=== PATIENT | female | born 1995 | race Caucasian/White ===

== ENCOUNTER 2023-11-28 14:35 | Emergency (ER) | payer OTHER ==
[2023-11-28 16:57] VITALS: RESP 18
[2023-11-28 18:05] LABS: Basophils % (A) 0 %; Eosinophils % (A) 1 %; HCT 38.8 % (34.0-46.0); HGB 13.1 gm/dL (11.4-16.0); Lymphocytes # (A) 1.1 k/uL (1.0-4.8); Lymphocytes % (A) 15 %; MCH 30.3 pg (25.0-35.0); MCHC 33.7 g/dL (31.0-37.0); MCV 89.8 fL (80.0-100.0); Mean Platelet Volume 8.4; Monocytes # (A) 0.4 k/uL (0-1.0); Monocytes % (A) 5 %; Neutrophils # (A) 5.8 k/uL (1.3-7.7); Neutrophils % (A) 78 %; Platelet Count 217 k/uL (150-450); RBC 4.32 m/uL (3.80-5.40); RDW 12.6 % (11.5-15.5); WBC 7.4 k/uL (3.8-10.6)
[2023-11-28] MEDS ORDERED: KETOROLAC 15 MG/ML 1 ML VIAL IVP STA (18:13)
[2023-11-28 18:15] LABS: African American GFR (CKD) >90 (>60 ml/min/1.73 sqM); Anion Gap 12 mmol/L; Blood Urea Nitrogen 10 mg/dL (7-17); Calcium 9.1 mg/dL (8.4-10.2); Carbon Dioxide 22 mmol/L (22-30); Chloride 104 mmol/L (98-107); Glucose 89 mg/dL (74-99); Non-African American GFR(CKD) >90 (>60 ml/min/1.73 sqM); Sodium 138 mmol/L (137-145)
[2023-11-28 18:17] LABS: Potassium 4.1 mmol/L (3.5-5.1)
--- NOTE | 2023-11-28 19:04 | CT ---
EXAMINATION TYPE: CT soft tissue neck w con DATE OF EXAM: 11/28/2023 COMPARISON: None HISTORY: 28-year-old female right side tooth pain, possible Lj's angina TECHNIQUE: Contiguous axial scanning of the soft tissues of the neck performed with IV Contrast, mary ent injected with 100 ml mL of Isovue 300. Coronal and sagittal reconstructions performed. CT DLP: 406.2 mGycm Automated exposure control for dose reduction was used. FINDINGS: Visualized intracranial structures, orbits and globes, and mastoid air cells appear clear. Slight lef tward nasal septal deviation. Nasopharynx is clear. Mild to moderate hypertrophy of the bilateral palatine tonsils. Epiglottis and prevertebral soft tissues are satisfactory. There is soft tissue swelling overlying the anterior right side of the mandible with corresponding th ickening of the upper right platysma muscle. An enlarged 9 mm right submental space lymph node and a couple asymmetric right-sided maneuvers space lymph nodes measuring up to 1.0 cm.. No significant periodontal disease identified. Glottic and subglottic structures as well as the tracheal column and visualized upper lungs appear cl ear. Bones: No osseous destructive process. IMPRESSION: 1. CELLULITIS ALONG THE ANTERIOR AND RIGHT SIDE OF THE JAW EXTENDING TO THE RIGHT SIDE OF THE UPPER N GEETA. SOME REACTIVE LYMPH NODES UPPER RIGHT NECK MEASURING UP TO 1 CM. NO ABSCESS IS IDENTIFIED. UNABL E TO IDENTIFY SIGNIFICANT PERIODONTAL DISEASE. CLINICALLY CORRELATE. 2. Preserved fat planes along the floor of the mouth argues against Lj's angina. Clinical follow- up if persistent concern or worsening symptoms.
--- NOTE | 2023-11-28 19:37 | ED ---
ENT HPI - General Chief complaint: Dental/Oral Stated complaint: tooth infection Time Seen by Provider: 11/28/23 16:32 Source: patient, family Mode of arrival: ambulatory Limitations: no limitations - History of Present Illness Initial comments: This patient is a 28-year-old woman who presents to have evaluation for right sided dental pain. She indicates right-sided mandibular molar. She also complains of swelling and tenderness. She states she had gone to dental clinic and was sent here with concerns related to the developing infection. Patient had initially been seen 2 days ago at [facility] and started amoxicillin. She states that the swelling worsened over the course of last night. No change in speech or swallowing. No dyspnea. MD complaint: tooth pain -: days(s) Severity: moderate Quality: aching Consistency: constant Improves with: none Worsens with: eating Associated Symptoms: gum swelling, toothache - Related Data Previous Rx's Medication Instructions Recorded Amoxic-Pot Clav 875-125Mg 1 tab PO Q12HR 1 Days #14 tab 11/28/23 [Augmentin 875-125] Allergies Allergy/AdvReac Type Severity Reaction Status Date / Time Milk Containing Products Allergy Nausea & Verified 11/28/23 16:42 (Dairy) Vomiting & [Dairy] Diarrhea Review of Systems ROS Statement: Those systems with pertinent positive or pertinent negative responses have been documented in the HPI. ROS Other: All systems not noted in ROS Statement are negative. Constitutional: Denies: fever, chills, weakness Eyes: Denies: eye pain, vision change ENT: Reports: dental pain. Denies: ear pain, throat pain Respiratory: Denies: cough, dyspnea Cardiovascular: Denies: chest pain, syncope Gastrointestinal: Denies: abdominal pain, vomiting Skin: Denies: rash Neurological: Denies: headache Past Medical History Past Medical History: No Reported History History of Any Multi-Drug Resistant Organisms: None Reported Additional Past Surgical History / Comment(s): dental surgery Past Psychological History: Anxiety, Depression Smoking Status: Never smoker Past Alcohol Use History: None Reported Past Drug Use History: None Reported General Exam Limitations: no limitations General appearance: alert, in no apparent distress Head exam: Present: atraumatic, normocephalic Eye exam: Present: normal appearance, PERRL, EOMI. Absent: periorbital swelling, periorbital tenderness ENT exam: Present: normal oropharynx Neck exam: Present: normal inspection, tenderness, full ROM, lymphadenopathy, other (Patient does have swelling adjacent to the right mandible. There is no neck fullness. There are cervical nodes. No evident distress). Absent: meningi smus Respiratory exam: Present: normal lung sounds bilaterally. Absent: respiratory distress, wheezes, rales, rhonchi, stridor Cardiovascular Exam: Present: normal rhythm, tachycardia, normal heart sounds. Absent: systolic murmur, diastolic murmur, rubs, gallop GI/Abdominal exam: Present: soft. Absent: tenderness Neurological exam: Present: alert Skin exam: Present: warm, dry, intact, normal color. Absent: rash Course Vital Signs 11/28/23 11/28/23 16:34 19:37 Temperature 98.6 F 99.4 F Pulse Rate 109 H 88 Respiratory 18 18 Rate Blood Pressure 161/95 132/79 O2 Sat by Pulse 95 98 Oximetry Medical Decision Making - Medical Decision Making Was pt. sent in by a medical professional or institution (, PA, PRIMARY CARE COORDINATOR, urgent care, hospital, or penitentiary...) When possible be specific @ -Sided by outside clinic to have further evaluation for dental infection Did you speak to anyone other than the patient for history (EMS, parent, family, police, friend...)? What history was obtained from this source @ -[Patient's family contributed history Did you review nursing and triage notes (agree or disagree)? Why? @ -[I reviewed and agree with nursing and triage notes] Were old charts reviewed (outside hosp., previous admission, EMS record, old EKG, old radiological studies, urgent care reports/EKG's, penitentiary records)? Report findings @ -[No old charts were reviewed] Differential Diagnosis (chest pain, altered mental status, abdominal pain women, abdominal pain men, vaginal bleeding, weakness, fever, dyspnea, syncope, headache, dizziness, GI bleed, back pain, seizure, CVA, palpatations, mental health, musculoskeletal)? @ -[not applicable] EKG interpreted by me (3pts min.). @ -[As above] X-rays interpreted by me (1pt min.). @ -[None done] CT interpreted by me (1pt min.). @ -[None done] U/S interpreted by me (1pt. min.). @ -[None done] What testing was considered but not performed or refused? (CT, X-rays, U/S, labs)? Why? @ -[None] What meds were considered but not given or refused? Why? @ -[None] Did you discuss the management of the patient with other professionals (professionals i.e. , PA, PRIMARY CARE COORDINATOR, lab, RT, psych nurse, social work therapist, mosaic tile maker, teacher, chief green officer, case management assistant)? Give summary @ -[No] Was smoking cessation discussed for >3mins.? @ -[No] Was critical care preformed (if so, how long)? @ -[No] Were there social determinants of health that impacted care today? How? (Homelessness, low income, unemployed, alcoholism, drug addiction, transportation, low edu. Level, literacy, decrease access to med. care, penitentiary, rehab)? @ -[No] Was there de-escalation of care discussed even if they declined (Discuss DNR or withdrawal of care, Hospice)? DNR status @ -[No] What co-morbidities impacted this encounter? (DM, HTN, Smoking, COPD, CAD, Cancer, CVA, ARF, Chemo, Hep., AIDS, mental health diagnosis, sleep apnea, morbid obesity)? @ -[None] Was patient admitted / discharged? Hospital course, mention meds given and route, prescriptions, significant lab abnormalities, going to OR and other pertinent info. @ -[Patient is 28-year-old woman here with increasing infection related to right mandibular dental infection. The studies do not reveal evidence of Lj angina. Will increase the spectrum activity of patient's antibiotic coverage and have close follow-up. Discussed return parameters. Undiagnosed new problem with uncertain prognosis? @ -[No] Drug Therapy requiring intensive monitoring for toxicity (Heparin, Nitro, Insulin, Cardizem)? @ -[No] Were any procedures done? @ -[No] Diagnosis/symptom? @ -[Acute dental infection Acute, or Chronic, or Acute on Chronic? @ -[Acute Uncomplicated (without systemic symptoms) or Complicated (systemic symptoms)? @ -[Uncomplicated Side effects of treatment? @ -[No] Exacerbation, Progression, or Severe Exacerbation? @ -[No] Poses a threat to life or bodily function? How? (Chest pain, [place], [place], pneumonia, PE, COPD, DKA, ARF, appy, cholecystitis, CVA, Diverticulitis, Homicidal, Suicidal, threat to staff... and all critical care pts) @ -[No] - Lab Data Result diagrams: 11/28/23 17:36 11/28/23 17:36 Lab Results 11/28/23 11/28/23 Range/Units 17:36 17:36 WBC 7.4 (3.8-10.6) k/uL RBC 4.32 (3.80-5.40) m/uL Hgb 13.1 (11.4-16.0) gm/dL Hct 38.8 (34.0-46.0) % MCV 89.8 (80.0-100.0) fL MCH 30.3 (25.0-35.0) pg MCHC 33.7 (31.0-37.0) g/dL RDW 12.6 (11.5-15.5) % Plt Count 217 (150-450) k/uL MPV 8.4 Neutrophils % 78 % Lymphocytes % 15 % Monocytes % 5 % Eosinophils % 1 % Basophils % 0 % Neutrophils # 5.8 (1.3-7.7) k/uL Lymphocytes # 1.1 (1.0-4.8) k/uL Monocytes # 0.4 (0-1.0) k/uL Eosinophils # 0.0 (0-0.7) k/uL Basophils # 0.0 (0-0.2) k/uL Sodium 138 (137-145) mmol/L Potassium 4.1 (3.5-5.1) mmol/L Chloride 104 (98-107) mmol/L Carbon Dioxide 22 (22-30) mmol/L Anion Gap 12 mmol/L BUN 10 (7-17) mg/dL Creatinine 0.45 L (0.52-1.04) mg/dL Est GFR (CKD-EPI)AfAm >90 (>60 ml/min/1.73 sqM) Est GFR (CKD-EPI)NonAf >90 (>60 ml/min/1.73 sqM) Glucose 89 (74-99) mg/dL Calcium 9.1 (8.4-10.2) mg/dL Disposition Clinical Impression: Dental infection Disposition: HOME SELF-CARE Condition: Good Instructions (If sedation given, give patient instructions): Toothache (ED) Prescriptions: Amoxic-Pot Clav 875-125Mg [Augmentin 875-125] 1 tab PO Q12HR 1 Days #14 tab Is patient prescribed a controlled substance at d/c from ED?: No Referrals: Dileep Oliveira, [Primary Care Provider] - 1-2 days
[2023-11-28 19:53] VITALS: BP 132/79; PULSE 88; TEMP 99.4
== END 2023-11-28 20:05 | disposition home or self-care (01) ==
LOC: EC 14:35
DX: K04.7 Periapical abscess without sinus (principal); Z91.011 Allergy to milk products
CPT/HCPCS: 99284 ×2; 96374 ×2; 36415; 80048; 85025; 70491; J1885; Q9967